=== PATIENT | male | born 1955 | race Caucasian/White ===

== ENCOUNTER 2018-01-08 18:12 | Emergency (ER) | payer OTHER ==
[2018-01-08] MEDS ORDERED: NORMAL SALINE 1000 ML 1,000 ML IV ONE (19:06)
[2018-01-08] MEDS ORDERED: PANTOPRAZOLE SODIUM 40 MG VIAL IV ONE (19:07)
--- NOTE | 2018-01-08 19:13 | ER Document Report ---
ED General - General Chief Complaint: Abdominal Pain Stated Complaint: ABDOMINAL PAIN Time Seen by Provider: 01/08/18 18:43 Notes: Patient is a 62-year-old male that presents to the emergency department for chief complaint of stomach cramping and gas. Patient reports has been having these symptoms over the last 3 weeks, describes it as an aching and having lots of gas, and changes in his bowel movements. He has had some loose stools, and changes in the colors, stating that it has been brown, green, and occasionally darker as well. He has an appoint with the [facility] next week, he states he had x- rays performed several days ago, he does not know the results of these. He states he does have a history of H. pylori, which was treated last year, at that time he was having more belching as opposed to flatulence. Denies any recent travel, or consumption of undercooked foods. No sick contacts that he is aware of. Past Medical History: GERD, H pylori Past Surgical History: Denies abdominal surgeries in the past, reports orthopedic surgeries Social History: Denies current tobacco, alcohol or drug use Family History: Reviewed and noncontributory for presenting illness Allergies: Reviewed, see documented allergy list. REVIEW OF SYSTEMS: Other than noted above, the 12 point review of systems was reviewed with the patient and were negative, all pertinent findings are included in the HPI. PHYSICAL EXAMINATION: Vital signs reviewed, nursing noted reviewed. GENERAL: Well-appearing, well-nourished and in no acute distress. HEAD: Atraumatic, normocephalic. EYES: Eyes appear normal, extraocular movements intact, sclera anicteric, conjunctiva are normal. ENT: nares patent, oropharynx clear without exudates. Moist mucous membranes. NECK: Normal range of motion, supple without lymphadenopathy LUNGS: Breath sounds clear to auscultation bilaterally and equal. No wheezes rales or rhonchi. HEART: Regular rate and rhythm without murmurs ABDOMEN: Soft, nontender, normoactive bowel sounds. No rebound, guarding, or rigidity. No masses appreciated. EXTREMITIES: Nontender, good range of motion, no pitting or edema. NEUROLOGICAL: No focal neurological deficits. Moves all extremities spontaneously Motor and sensory grossly intact on exam. PSYCH: Normal mood, normal affect. SKIN: Warm, Dry, normal turgor, no rashes or lesions noted on exposed skin TRAVEL OUTSIDE OF THE [place] IN LAST 30 DAYS: No - Related Data Allergies/Adverse Reactions: erythromycin base Allergy (Verified 01/08/18 18:21) Penicillins Allergy (Verified 01/08/18 18:21) Past Medical History - Social History Smoking Status: Never Smoker Chew tobacco use (# tins/day): No Frequency of alcohol use: None Drug Abuse: None Family History: Reviewed & Not Pertinent Patient has suicidal ideation: No Patient has homicidal ideation: No Renal/ Medical History: Denies: Hx Peritoneal Dialysis Physical Exam - Vital signs Vitals: Temp Pulse Resp BP Pulse Ox 98.2 F 85 18 139/106 H 100 01/08/18 18:24 01/08/18 18:24 01/08/18 18:24 01/08/18 18:24 01/08/18 18:24 Course - Re-evaluation Re-evalutation: Patient seen and examined vital signs reviewed. Laboratory data and imaging were ordered as appropriate for the patient's presenting symptoms and complaint, with consideration of any critical or life threatening conditions that may be associated with their obtained history and exam as noted above. Patient was treated with IV fluid, and Protonix Results were reviewed when available and demonstrated unremarkable blood work, negative lipase, and negative troponin, stool studies were ordered however patient did not provide sample The patient was re-evaluated and was stable Evaluation was most consistent with abdominal cramping, intermittent diarrhea, [facility] he has an appointment this upcoming Saturday, he is advised if his symptoms worsen to return to the emergency department sooner, will prescribe a prescription for Bentyl and simethicone. Results were discussed with the patient at this point, after careful consideration I feel that that patient can be discharged from the emergency department, the patient was educated treatments and reasons to return to the emergency department based on their presumed diagnosis as noted above, they were advised to followup with a primary care physician in 2-3 days. Patient was agreeable to plan of care. *Note is created using voice recognition software and may contain spelling, syntax or grammatical errors. Laboratory 01/08/18 01/08/18 01/08/18 19:40 19:40 19:40 WBC 6.2 RBC 4.88 Hgb 14.9 Hct 43.8 MCV 90 MCH 30.5 MCHC 34.0 RDW 12.9 Plt Count 241 Seg Neutrophils % 77.9 Lymphocytes % 12.7 L Monocytes % 7.5 Eosinophils % 1.5 Basophils % 0.4 Absolute Neutrophils 4.8 Absolute Lymphocytes 0.8 Absolute Monocytes 0.5 Absolute Eosinophils 0.1 Absolute Basophils 0.0 Sodium 142.3 Potassium 4.2 Chloride 101 Carbon Dioxide 29 Anion Gap 12 BUN 14 Creatinine 0.84 Est GFR ( Amer) > 60 Est GFR (Non-Af Amer) > 60 Glucose 93 Calcium 9.2 Total Bilirubin 0.6 Direct Bilirubin 0.1 Neonat Total Bilirubin Not Reportable Neonat Direct Bilirubin Not Reportable Neonat Indirect Bili Not Reportable AST 24 ALT 23 Alkaline Phosphatase 71 Troponin I < 0.012 Total Protein 7.0 Albumin 4.0 Lipase 41.7 - Vital Signs Vital signs: Temp Pulse Resp BP Pulse Ox 98.2 F 85 17 155/93 H 99 01/08/18 21:43 01/08/18 21:43 01/08/18 21:43 01/08/18 21:43 01/08/18 21:43 - Laboratory Result Diagrams: 01/08/18 19:40 01/08/18 19:40 Laboratory results interpreted by me: 01/08/18 01/08/18 19:40 21:00 Lymphocytes % 12.7 L Urine Protein 30 H Discharge - Discharge Clinical Impression: Abdominal cramping Condition: Stable Disposition: HOME, SELF-CARE Instructions: Abdominal Pain ([facility]), Antispasmodics ([facility]) Additional Instructions: Please return to the emergency department if you have any worsening, or concern of your symptoms. Please return to the emergency department if you develop chest pain, difficulty breathing, severe abdominal pain, or ongoing vomiting. Please follow-up with your primary care physician in 2-3 days and any other recommended physicians. If prescribed, take all medications as directed. If you have any questions or concerns do not hesitate to return the emergency department for evaluation. Prescriptions: Dicyclomine HCl [Bentyl 10 mg Capsule] 1 cap PO TID PRN #30 cap PRN Reason: Abdominal Cramping Simethicone [Mylicon 80 mg Chewable Tablet] 80 mg PO QIDP PRN #30 tab.chew PRN Reason: abdominal gas Referrals: NICOLE VORA MD [[facility]ONORARY] - Follow up as needed
[2018-01-08 19:51] LABS: ABSOLUTE EOSINOPHILS # (AUTO) 0.1 10^3/uL (0.0-0.6); ABSOLUTE LYMPHOCYTES (AUTO) 0.8 10^3/uL (0.5-4.7); ABSOLUTE MONOCYTES (AUTO) 0.5 10^3/uL (0.1-1.4); ABSOLUTE NEUT (AUTO) 4.8 10^3/uL (1.7-8.2); BASOPHILS % (AUTO) 0.4 % (0-2); EOSINOPHILS % (AUTO) 1.5 % (0-6); HEMATOCRIT 43.8 % (37.9-51.0); HEMOGLOBIN 14.9 g/dL (13.5-17.0); LYMPHOCYTES % (AUTO) 12.7 % (13-45); MEAN CORPUSCULAR HEMOGLOBIN 30.5 pg (27.0-33.4); MEAN CORPUSCULAR VOLUME 90 fl (80-97); MONOCYTES % (AUTO) 7.5 % (3-13); PLATELET COUNT 241 10^3/uL (150-450); RED BLOOD COUNT 4.88 10^6/uL (4.35-5.55); RED CELL DISTRIBUTION WIDTH 12.9 % (11.5-14.0); SEGMENTED NEUTROPHILS % (AUTO) 77.9 % (42-78); TOTAL CELLS COUNTED % (AUTO) 100 %; WHITE BLOOD COUNT 6.2 10^3/uL (4.0-10.5)
[2018-01-08 20:16] LABS: ALANINE AMINOTRANSFERASE 23 U/L (21-72); ALKALINE PHOSPHATASE 71 U/L (38-126); ANION GAP 12 (5-19); ASPARTATE AMINO TRANSFERASE 24 U/L (17-59); BILIRUBIN,DIRECT 0.1 mg/dL (0.0-0.4); BILIRUBIN,TOTAL 0.6 mg/dL (0.2-1.3); BLOOD UREA NITROGEN 14 mg/dL (7-20); CALCIUM 9.2 mg/dL (8.4-10.2); CARBON DIOXIDE 29 mmol/L (22-30); CHLORIDE 101 mmol/L (98-107); GLUCOSE 93 mg/dL (75-110); LIPASE 41.7 U/L (23-300); POTASSIUM 4.2 mmol/L (3.6-5.0); SODIUM 142.3 mmol/L (137-145)
[2018-01-08 21:49] VITALS: BP 155/93
[2018-01-08 21:50] LABS: APPEARANCE,URINE CLEAR; BILIRUBIN,URINE NEGATIVE (NEGATIVE); COLOR,URINE YELLOW; GLUCOSE, URINE NEGATIVE (NEGATIVE); KETONES,URINE NEGATIVE (NEGATIVE); LEUKOCYTE ESTERASE,URINE NEGATIVE (NEGATIVE); NITRITE,URINE NEGATIVE (NEGATIVE); PROTEIN,URINE 30 mg/dL (NEGATIVE); URINE SPECIFIC GRAVITY 1.015; UROBILINOGEN,URINE NEGATIVE mg/dL (<2.0)
== END 2018-01-08 21:49 | disposition home or self-care (01) ==
LOC: ER 18:12
DX: R10.9 Unspecified abdominal pain (principal); R19.4 Change in bowel habit; R19.5 Other fecal abnormalities; R14.3 Flatulence; Z87.19 Personal history of other diseases of the digestive system; Z88.1 Allergy status to other antibiotic agents; Z88.0 Allergy status to penicillin
CPT/HCPCS: 99284; 96361; 96374; 36415; 83690; 85025; 80053; 81001; 84484; S0164; J7030

== ENCOUNTER 2019-01-17 11:21 | Emergency (ER) | payer OTHER ==
--- NOTE | 2019-01-17 11:48 | EKG REPORT ---
SEVERITY:- ABNORMAL ECG - SINUS RHYTHM ATRIAL PREMATURE COMPLEX PROBABLE LEFT ATRIAL ABNORMALITY LEFT ANTERIOR FASCICULAR BLOCK : Confirmed by: Morelia Wright MD 17-Jan-2019 11:47:30
--- NOTE | 2019-01-17 11:56 | ER Document Report ---
ED Medical Screen (RME) - General Chief Complaint: Chest Pain Stated Complaint: CHEST PAIN Time Seen by Provider: 01/17/19 11:49 Mode of Arrival: Wheelchair Information source: Patient Notes: 63-year-old male presents emergency department with midsternal chest pain since last night. Reports he has taken at least 10 sublingual nitros without relief of chest pain. Patient reports he had 2 stents placed in July at [facility]. Patient reports he was on the ground exercising when he started having chest pain. Denies nausea vomiting denies diaphoresis reports it hurts more when he takes a deep breath. Reports he will not take a deep breath again because it hurts so bad. I have greeted and performed a rapid initial assessment of this patient. A comprehensive ED assessment and evaluation of the patient, analysis of test results and completion of the medical decision making process will be conducted by additional ED providers. Dictation of this chart was performed using voice recognition software; therefore, there may be some unintended grammatical errors. TRAVEL OUTSIDE OF THE [place].S. IN LAST 30 DAYS: No - Related Data Allergies/Adverse Reactions: erythromycin base Allergy (Verified 01/17/19 11:47) Penicillins Allergy (Verified 01/17/19 11:47) Past Medical History - Social History Chew tobacco use (# tins/day): No Frequency of alcohol use: Occasional Drug Abuse: None Renal/ Medical History: Denies: Hx Peritoneal Dialysis Physical Exam - Vital signs Vitals: Temp Pulse Resp BP Pulse Ox 98 F 82 16 128/77 H 95 01/17/19 11:48 01/17/19 11:48 01/17/19 11:48 01/17/19 11:48 01/17/19 11:48 Course - Vital Signs Vital signs: Temp Pulse Resp BP Pulse Ox 98 F 82 16 128/77 H 95 01/17/19 11:48 01/17/19 11:48 01/17/19 11:48 01/17/19 11:48 01/17/19 11:48
[2019-01-17] MEDS ORDERED: NITROGLYCERIN/D5W 50 MG/250 ML RTUINJ IV ONE (12:16)
[2019-01-17] MEDS ORDERED: NITROGLYCERIN/D5W 50 MG/250 ML RTUINJ IV PRN (12:17)
[2019-01-17 12:25] LABS: ABSOLUTE BASOPHILS # (AUTO) 0.1 10^3/uL (0.0-0.2); ABSOLUTE LYMPHOCYTES (AUTO) 1.4 10^3/uL (0.5-4.7); ABSOLUTE MONOCYTES (AUTO) 0.8 10^3/uL (0.1-1.4); ABSOLUTE NEUT (AUTO) 10.7 10^3/uL (1.7-8.2); BASOPHILS % (AUTO) 0.4 % (0-2); EOSINOPHILS % (AUTO) 0.1 % (0-6); HEMATOCRIT 43.7 % (37.9-51.0); HEMOGLOBIN 14.5 g/dL (13.5-17.0); LYMPHOCYTES % (AUTO) 10.5 % (13-45); MEAN CORPUSCULAR HEMOGLOBIN 30.6 pg (27.0-33.4); MEAN CORPUSCULAR HGB CONC 33.2 g/dL (32.0-36.0); MEAN CORPUSCULAR VOLUME 92 fl (80-97); MONOCYTES % (AUTO) 6.4 % (3-13); PLATELET COUNT 268 10^3/uL (150-450); RED BLOOD COUNT 4.75 10^6/uL (4.35-5.55); RED CELL DISTRIBUTION WIDTH 14.4 % (11.5-14.0); SEGMENTED NEUTROPHILS % (AUTO) 82.6 % (42-78); TOTAL CELLS COUNTED % (AUTO) 100 %
[2019-01-17 12:36] LABS: ALKALINE PHOSPHATASE 53 U/L (38-126); ANION GAP 7 (5-19); ASPARTATE AMINO TRANSFERASE 19 U/L (17-59); BILIRUBIN,TOTAL 0.5 mg/dL (0.2-1.3); BLOOD UREA NITROGEN 21 mg/dL (7-20); CALCIUM 9.4 mg/dL (8.4-10.2); CARBON DIOXIDE 28 mmol/L (22-30); CHLORIDE 102 mmol/L (98-107); CREATINE KINASE 61 U/L (55-170); GLUCOSE 82 mg/dL (75-110); TOTAL PROTEIN 6.8 g/dL (6.3-8.2)
--- NOTE | 2019-01-17 13:01 | RADIOLOGY REPORT (SQ) ---
EXAM DESCRIPTION: CHEST SINGLE VIEW COMPLETED DATE/TIME: 01/17/2019 12:52 pm REASON FOR STUDY: cp COMPARISON: None. EXAM PARAMETERS: NUMBER OF VIEWS: One view. TECHNIQUE: Single frontal radiographic view of the chest acquired. RADIATION DOSE: NA LIMITATIONS: None. FINDINGS: LUNGS AND PLEURA: No opacities, masses or pneumothorax. No pleural effusion. MEDIASTINUM AND HILAR STRUCTURES: No masses. Contour normal. HEART AND VASCULAR STRUCTURES: Heart normal in size. Normal vasculature. BONES: No acute findings. HARDWARE: None in the chest. OTHER: No other significant finding. IMPRESSION: NO ACUTE RADIOGRAPHIC FINDING IN THE CHEST. TECHNICAL DOCUMENTATION: JOB ID: [id number] [employer]- All Rights Reserved Reading location - IP/workstation name: [email or web address]
[2019-01-17] MEDS ORDERED: HEPARIN SODIUM,PORCINE/D5W 25,000 UNIT/250 ML RTUINJ IV PRN (15:12)
[2019-01-17] MEDS ORDERED: HEPARIN SOD (PORCINE) 1,000 UNIT/ML 10 ML VIAL IV ONE (15:12)
[2019-01-17 15:52] LABS: INTERNATIONAL RATION (INR) 0.96; PROTHROMBIN TIME 12.8 SEC (11.4-15.4)
[2019-01-17 15:53] LABS: PARTIAL THROMBOPLASTIN TIME 25.1 SEC (23.5-35.8)
[2019-01-17] MEDS ORDERED: MORPHINE SULFATE IR 15 MG TABLET PO ONE (15:59)
[2019-01-17] MEDS ORDERED: GABAPENTIN 300 MG CAPSULE PO ONE (15:59)
[2019-01-17] MEDS ORDERED: OXYCODONE-ACETAMINOPHEN 5-325 MG TABLET PO ONE (16:00)
--- NOTE | 2019-01-17 16:06 | ER Document Report ---
Entered by FARSHAD FORD SCRIBE 01/17/19 1217 Acting as scribe for:FATEMEH BINGHAM IV, MD ED Cardiac - General Chief Complaint: Chest Pain Stated Complaint: CHEST PAIN Time Seen by Provider: 01/17/19 11:49 Primary Care Provider: RICHIE,RAH [Primary Care Provider] - Follow up as needed Mode of Arrival: Wheelchair Notes: Patient is a 63-year-old male that presents to the emergency department today with complaints of chest pain which began yesterday at 6 PM when he was exercising. Patient states when the chest pain began he sat down to rest but the chest pain continued into today. Patient has taken 10 sublingual nitroglycerin since midnight last night. Pertinent PMHx/PSHx: Currently in pain management, taking 15 mg morphine tabs BID. Previous [place] 6 months ago. Coronary artery disease. Hyperlipidemia. Type II diabetic.. PCP: [facility] TRAVEL OUTSIDE OF THE [place] IN LAST 30 DAYS: No - Related Data Allergies/Adverse Reactions: erythromycin base Allergy (Verified 01/17/19 11:47) Penicillins Allergy (Verified 01/17/19 11:47) Past Medical History - General Information source: Patient - Social History Smoking Status: Current Every Day Smoker Cigarette use (# per day): Yes Chew tobacco use (# tins/day): No Frequency of alcohol use: Occasional Drug Abuse: None Lives with: Family Family History: Reviewed & Not Pertinent Patient has suicidal ideation: No Patient has homicidal ideation: No - Past Medical History Cardiac Medical History: Reports: Hx Coronary Artery Disease, Hx Heart Attack Past Surgical History: Reports: Hx Cardiac Catheterization, Hx Coronary Stent Review of Systems - Review of Systems Constitutional: No symptoms reported EENT: No symptoms reported Cardiovascular: See HPI, Chest pain Respiratory: No symptoms reported Gastrointestinal: No symptoms reported Genitourinary: No symptoms reported Male Genitourinary: No symptoms reported Musculoskeletal: No symptoms reported Skin: No symptoms reported Hematologic/Lymphatic: No symptoms reported Neurological/Psychological: No symptoms reported -: Yes All other systems reviewed and negative Physical Exam - Vital signs Vitals: Temp Pulse Resp BP Pulse Ox 98 F 82 16 128/77 H 95 01/17/19 11:48 01/17/19 11:48 01/17/19 11:48 01/17/19 11:48 01/17/19 11:48 - Notes Notes: Physical Exam: General: Alert, appears well. HEENT: Normocephalic. Atraumatic. PERRL. Extraocular movements intact. Oropharynx clear. Neck: Supple. Non-tender. Respiratory: No respiratory distress. Clear and equal breath sounds bilaterally. Cardiovascular: Regular rate and rhythm. Abdominal: Normal Inspection. Non-tender. No distension. Normal Bowel Sounds. Back: No gross abnormalities. Extremities: Moves all four extremities. Upper extremities: Normal inspection. Normal ROM. Lower extremities: Normal inspection. No edema. Normal ROM. Neurological: Normal cognition. AAOx4. Normal speech. Psychological: Normal affect. Normal Mood. Skin: Warm. Dry. Normal color. Course - Vital Signs Vital signs: Temp Pulse Resp BP Pulse Ox 98 F 82 20 109/71 98 01/17/19 11:48 01/17/19 11:48 01/17/19 12:01 01/17/19 12:00 01/17/19 12:08 - Laboratory Result Diagrams: 01/17/19 12:03 01/17/19 12:03 Laboratory results interpreted by me: 01/17/19 01/17/19 12:03 12:03 WBC 13.0 H RDW 14.4 H Lymph % (Auto) 10.5 L Absolute Neuts (auto) 10.7 H Seg Neutrophils % 82.6 H BUN 21 H - Diagnostic Test Radiology reviewed: Reports reviewed - EKG Interpretation by Me Additional EKG results interpreted by me: 01/17/19 15:35 EKG performed on 01/17/2019 at 1133 hrs. was interpreted by this MD. Findings normal sinus rhythm, rate 70, normal axis, pes preceding QRS complexes, QRS complex narrow, no acute ST segment elevation or depression to suggest myocardial ischemia or infarction. Impression normal sinus rhythm with nonspecific ST segments. - Consults DR. JESS JASON Time consulted: 15:02 - Case discussed with Dr. Jason, [place] wallpaper cleaner. He agreed to accept patient for transfer to this facility. He requested that the patient be given a 3000 units heparin bolus IV followed by a heparin drip at 12 units/kg/h. Reason for consultation: 01/17/19 15:40 CHEST PAIN CONTROLLED WITH IV NITROGLYCERIN. PT STATES HE HAD 3 STENTS PLACED AT [facility]. - Transfer of Care Care transferred to following provider: DR. VIDAL AT 1600 HOURS Discharge - Discharge Clinical Impression: Acute chest pain Condition: Good Disposition: [facility] - Follow up as needed I personally performed the services described in the documentation, reviewed and edited the documentation which was dictated to the scribe in my presence, and it accurately records my words and actions.
[2019-01-17 20:04] VITALS: BP 104/62
--- NOTE | 2019-01-17 20:11 | ER Document Report ---
Doctor's Note Notes: 01/17/19 20:10 Care of this patient was turned over to me at the beginning of my shift. In short this is a 63-year-old male with unstable angina, prior medical care and coronary stenting done at [facility], who was awaiting transfer and bed assignment. The patient remained chest pain-free throughout the course of his stay on a nitroglycerin drip here. He has been stable. He is stable and medically cleared for transport.
== END 2019-01-17 20:22 | disposition short-term general hospital (02) ==
LOC: ER 11:21
DX: R07.9 Chest pain, unspecified (principal); Z79.899 Other long term (current) drug therapy; I25.2 Old myocardial infarction; I25.10 Atherosclerotic heart disease of native coronary artery without angina pectoris; E11.9 Type 2 diabetes mellitus without complications; F17.210 Nicotine dependence, cigarettes, uncomplicated
CPT/HCPCS: 93005; 99285; 96365; 96366; 96368; 36415; 82550; 85025; 85610; 85730; 80053; 84484; 71045; 93010; J1644 ×2; J3490

== ENCOUNTER 2019-12-31 04:42 | Emergency (ER) | payer OTHER ==
[2019-12-31] MEDS ORDERED: DEXAMETHASONE SOD PHOS INJ 10 MG/1 ML VIAL IM ONE (05:56)
[2019-12-31] MEDS ORDERED: DIPHENHYDRAMINE HCL 50 MG/ML VIAL IM ONE (05:57)
--- NOTE | 2019-12-31 07:33 | ER Document Report ---
ED General - General Chief Complaint: Rash Stated Complaint: ALLERGIC REACTION DUE TO MEDICATION [facility] Provider: [facility] [[facility]] - Follow up as needed Notes: 64-year-old male history of chronic neck pain hypertension started on meloxicam and other NSAID last week for back pain presents with rash spreading over anterior neck upper chest and on bilateral cheeks. Rash is extremely purulent. Patient has tried Benadryl without effect. Patient denies any rashes mouth, eye redness, fever, rash elsewhere, shortness of breath, dizziness, fatigue, GI symptoms, throat swelling TRAVEL OUTSIDE OF THE [place] IN LAST 30 DAYS: No - Related Data Allergies/Adverse Reactions: erythromycin base Allergy (Verified 12/31/19 05:01) meloxicam Allergy (Verified 12/31/19 05:01) naproxen [From Naprosyn] Allergy (Verified 12/31/19 05:01) Penicillins Allergy (Verified 12/31/19 05:01) Past Medical History - General Information source: Patient - Social History Smoking Status: Never Smoker Frequency of alcohol use: None Drug Abuse: None Family History: Reviewed & Not Pertinent - Past Medical History Cardiac Medical History: Reports: Hx Coronary Artery Disease, Hx Heart Attack Renal/ Medical History: Denies: Hx Peritoneal Dialysis Past Surgical History: Reports: Hx Cardiac Catheterization, Hx Coronary Stent Review of Systems - Review of Systems Notes: REVIEW OF SYSTEMS: CONSTITUTIONAL : Denies fever, chills, or sweats. EENT: Denies recent cold/sinus symptoms, denies throat pain CARDIOVASCULAR: Denies chest pain, KORI RESPIRATORY: Denies cough, denies shortness of breath. GASTROINTESTINAL: Denies abdominal pain, nausea/vomiting. GENITOURINARY: Denies difficulty urinating, painful urination. MUSCULOSKELETAL: Denies injury, back pain. SKIN: + rash or skin lesions. HEMATOLOGIC : Denies easy bruising or bleeding. LYMPHATIC: Denies swollen, enlarged glands. NEUROLOGICAL: Denies headache, denies change in gait. PSYCHIATRIC: Denies anxiety or stress or depression. Physical Exam - Vital signs Vitals: Temp Pulse Resp BP Pulse Ox 97.5 F 91 17 198/106 H 98 12/31/19 04:50 12/31/19 04:50 12/31/19 04:50 12/31/19 04:50 12/31/19 04:50 - Notes Notes: PHYSICAL EXAMINATION: GENERAL: Well-appearing, well-nourished and in no acute distress. HEAD: Atraumatic, normocephalic. EYES: Pupils equal round and appropriate constriction, sclera anicteric, conjunctiva are normal. ENT: nares patent, moist mucous membranes. NECK: Normal range of motion, supple without lymphadenopathy LUNGS: Breath sounds clear to auscultation bilaterally and equal. No wheezes rales or rhonchi. HEART: Regular rate and rhythm without murmurs ABDOMEN: Soft, nontender, no guarding, no masses, no CVAT EXTREMITIES: Normal range of motion, no pitting or edema. No cyanosis. NEUROLOGICAL: Awake, alert, conversing appropriately, moves all extremities spontaneously. PSYCH: Normal mood, normal affect. SKIN: Warm, Dry, normal turgor, blanching erythematous rash confluent over upper chest and anterior back with patches on bilateral cheeks. Segments on chest and back spares intertriginous neck folds, skin looks mildly friable, has scant bleeding from excoriations. Normal lips, normal oropharynx, no rash on hands Course - Re-evaluation Re-evalutation: 12/31/19 07:34 Patient with worsening rash after likely drug reaction. Patient DC'd NSAIDs ready. No symptoms of anaphylaxis. Patient has been scratching rash that appears to have a superimposed fungal infection, will treat with steroid antihistamines and topical azole. Will give patient during follow-up and instructed to follow-up with primary doctor. Gave follow-up instructions. Patient ready for discharge. - Vital Signs Vital signs: Temp Pulse Resp BP Pulse Ox 97.5 F 91 17 198/106 H 98 12/31/19 04:50 12/31/19 04:50 12/31/19 04:50 12/31/19 04:50 12/31/19 04:50 Discharge - Discharge Clinical Impression: Allergic drug rash, Tinea corporis Disposition: HOME, SELF-CARE Additional Instructions: Your rash appears to be due to an allergy to NSAID medications which include both medications you are taking as well as ibuprofen, Aleve, Motrin, Toradol. You can take acetaminophen (brand-name Tylenol). You also have a fungal infection brought on by this rash. Ringworm (Tinea Corporis) You have a fungal infection of the skin, called tinea corporis. This is sometimes called "ringworm." because it tends forms an enlarging ring on the skin. The infection results from exposure to another person or an animal carrying the fungus, but it is only mildly contagious. There can be mild itching, or sometimes no symptoms at all. The infection is usually treated with antifungal cream. This is applied two or three times daily. Healing may take two or three weeks. Occasionally, oral medication is necessary, for example, when the infection if very large, or if fungus involves the scalp or nails. Fingernail or toenail infections are very difficult to eradicate, often requiring many weeks of treatment. Return for re-examination if your symptoms change significantly -- for example, if you develop fever or chills, red streaks, increasing tenderness, swelling, or blisters at the infection site. Take cream as prescribed. Follow-up with distance education faculty liaison and primary doctor within 1 week. If you have trouble breathing, dizziness, fainting, rash of eyes or mouth, swelling in the mouth or throat, worsening rash, or any other worseni ng or alarming symptoms return to the emergency department immediately. Talk to your primary doctor about your blood pressure control. Uncontrolled blood high blood pressure is a risk factor for heart attack, stroke, and . You have any change in your vision, chest pain, shortness of breath, dizziness, fainting return to the emergency department immediately. Prescriptions: Ketoconazole 60 gm TP BID 28 Days #1 cream..g. Forms: Elevated Blood Pressure Referrals: PACO BONILLA DO [ACTIVE STAFF] - Follow up in 1 week ROB SANCHEZ MD [ACTIVE STAFF] - Follow up in 1 week
[2019-12-31 08:10] VITALS: BP 172/99
== END 2019-12-31 08:10 | disposition home or self-care (01) ==
LOC: ER 04:42
DX: R21 Rash and other nonspecific skin eruption (principal); T50.905A Adverse effect of unspecified drugs, medicaments and biological substances, initial encounter; B35.4 Tinea corporis; M54.9 Dorsalgia, unspecified; I25.10 Atherosclerotic heart disease of native coronary artery without angina pectoris; I25.2 Old myocardial infarction; I10 Essential (primary) hypertension; Z88.1 Allergy status to other antibiotic agents; Z88.8 Allergy status to other drugs, medicaments and biological substances; Z88.0 Allergy status to penicillin
CPT/HCPCS: 99284; 96372; J1200; J1100

== ENCOUNTER 2020-01-02 08:53 | Emergency (ER) | payer OTHER ==
--- NOTE | 2020-01-02 09:52 | ER Document Report ---
ED General - General Chief Complaint: Skin Problem Stated Complaint: RINGWORM FOLLOWUP Time Seen by Provider: 01/02/20 09:51 Primary Care Provider: RA[facility] QUIROZ [Primary Care Provider] - Follow up as needed TRAVEL OUTSIDE OF THE [place] IN LAST 30 DAYS: No - Related Data Allergies/Adverse Reactions: erythromycin base Allergy (Verified 12/31/19 05:01) meloxicam Allergy (Verified 12/31/19 05:01) naproxen [From Naprosyn] Allergy (Verified 12/31/19 05:01) Penicillins Allergy (Verified 12/31/19 05:01) Past Medical History - Social History Family History: Reviewed & Not Pertinent - Past Medical History Cardiac Medical History: Reports: Hx Coronary Artery Disease, Hx Heart Attack Renal/ Medical History: Denies: Hx Peritoneal Dialysis Past Surgical History: Reports: Hx Cardiac Catheterization, Hx Coronary Stent Physical Exam - Vital signs Vitals: Temp Pulse Resp BP Pulse Ox 97.7 F 79 18 183/110 H 98 01/02/20 09:00 01/02/20 09:00 01/02/20 09:00 01/02/20 09:00 01/02/20 09:00 Course - Vital Signs Vital signs: Temp Pulse Resp BP Pulse Ox 97.7 F 79 18 183/110 H 98 01/02/20 09:00 01/02/20 09:00 01/02/20 09:00 01/02/20 09:00 01/02/20 09:00 Discharge - Discharge Referrals: RICHIE,[facility] [Primary Care Provider] - Follow up as needed
[2020-01-02] MEDS ORDERED: DIPHENHYDRAMINE HCL 50 MG/ML VIAL IV ONE (10:30)
[2020-01-02] MEDS ORDERED: NORMAL SALINE 1000 ML 1,000 ML IV ONE (10:30)
[2020-01-02] MEDS ORDERED: FAMOTIDINE INJ/PF 20 MG/2 ML SDV IV ONE (10:31)
[2020-01-02] MEDS ORDERED: CLINDAMYCIN 900 MG/D5W RTU 900 MG/50 ML RTUPB IV ONE (10:32)
[2020-01-02 11:32] LABS: ABSOLUTE EOSINOPHILS # (AUTO) 0.7 10^3/uL (0.0-0.6); ABSOLUTE LYMPHOCYTES (AUTO) 1.6 10^3/uL (0.5-4.7); ABSOLUTE MONOCYTES (AUTO) 0.7 10^3/uL (0.1-1.4); ABSOLUTE NEUT (AUTO) 3.2 10^3/uL (1.7-8.2); BASOPHILS % (AUTO) 0.6 % (0-2); EOSINOPHILS % (AUTO) 11.6 % (0-6); HEMATOCRIT 44.4 % (37.9-51.0); LYMPHOCYTES % (AUTO) 25.5 % (13-45); MEAN CORPUSCULAR HEMOGLOBIN 29.8 pg (27.0-33.4); MEAN CORPUSCULAR HGB CONC 33.8 g/dL (32.0-36.0); MEAN CORPUSCULAR VOLUME 88 fl (80-97); MONOCYTES % (AUTO) 11.4 % (3-13); PLATELET COUNT 243 10^3/uL (150-450); RED BLOOD COUNT 5.04 10^6/uL (4.35-5.55); RED CELL DISTRIBUTION WIDTH 13.4 % (11.5-14.0); SEGMENTED NEUTROPHILS % (AUTO) 50.9 % (42-78); TOTAL CELLS COUNTED % (AUTO) 100 %; WHITE BLOOD COUNT 6.2 10^3/uL (4.0-10.5)
[2020-01-02 11:54] LABS: ALBUMIN 4.5 g/dL (3.5-5.0); ALKALINE PHOSPHATASE 74 U/L (38-126); ANION GAP 11 (5-19); ASPARTATE AMINO TRANSFERASE 34 U/L (17-59); BILIRUBIN,TOTAL 0.3 mg/dL (0.2-1.3); BLOOD UREA NITROGEN 21 mg/dL (7-20); CALCIUM 9.4 mg/dL (8.4-10.2); CARBON DIOXIDE 26 mmol/L (22-30); CHLORIDE 103 mmol/L (98-107); GLUCOSE 97 mg/dL (75-110); POTASSIUM 4.1 mmol/L (3.6-5.0); TOTAL PROTEIN 7.3 g/dL (6.3-8.2)
--- NOTE | 2020-01-02 13:19 | ER Document Report ---
Entered by JAYLON ANTON SCRIBE 01/02/20 1025 Acting as scribe for:YURI GAR MD ED General - General Chief Complaint: Skin Problem Stated Complaint: RINGWORM FOLLOWUP Time Seen by Provider: 01/02/20 09:51 Primary Care Provider: RICHIE,RAH [Primary Care Provider] - Follow up as needed Information source: Patient Notes: This 64 year old male patient presents to the emergency department today with complaints of a rash for the past x5 days. Patient states he thought it was a allergic reaction to him now taking naproxin and meloxicam, so he stopped taking both. Patient states he has visited urgent care and the ED x2 days ago. Patient states his last ED visit he got shots which helped with itching. Patient states the rash is on his upper chest and neck, but has spread to parts of his face since his last visit. TRAVEL OUTSIDE OF THE [place] IN LAST 30 DAYS: No - Related Data Allergies/Adverse Reactions: erythromycin base Allergy (Verified 12/31/19 05:01) meloxicam Allergy (Verified 12/31/19 05:01) naproxen [From Naprosyn] Allergy (Verified 12/31/19 05:01) Penicillins Allergy (Verified 12/31/19 05:01) Past Medical History - General Information source: Patient - Social History Smoking Status: Unknown if Ever Smoked Family History: Reviewed & Not Pertinent - Past Medical History Cardiac Medical History: Reports: Hx Coronary Artery Disease, Hx Heart Attack Renal/ Medical History: Denies: Hx Peritoneal Dialysis Past Surgical History: Reports: Hx Cardiac Catheterization, Hx Coronary Stent Review of Systems - Review of Systems Constitutional: No symptoms reported EENT: No symptoms reported Cardiovascular: No symptoms reported Respiratory: No symptoms reported Gastrointestinal: No symptoms reported Genitourinary: No symptoms reported Male Genitourinary: No symptoms reported Musculoskeletal: No symptoms reported Skin: See HPI, Rash - neck, chest, face Hematologic/Lymphatic: No symptoms reported Neurological/Psychological: No symptoms reported -: Yes All other systems reviewed and negative Physical Exam - Vital signs Vitals: Temp Pulse Resp BP Pulse Ox 97.7 F 79 18 183/110 H 98 01/02/20 09:00 01/02/20 09:00 01/02/20 09:00 01/02/20 09:00 01/02/20 09:00 - General General appearance: Appears well, Alert - HEENT Head: Normocephalic, Atraumatic Eyes: Normal Pupils: PERRL - Respiratory Respiratory status: No respiratory distress Chest status: Nontender Breath sounds: Normal Chest palpation: Normal - Cardiovascular Rhythm: Regular Heart sounds: Normal auscultation Murmur: No - Abdominal Inspection: Normal Distension: No distension Bowel sounds: Normal Tenderness: Nontender - Extremities General upper extremity: Normal inspection, Normal ROM General lower extremity: Normal inspection, Normal ROM. No: Edema - Neurological Neuro grossly intact: Yes Cognition: Normal Orientation: AAOx4 [place] Coma Scale Eye Opening: Spontaneous [place] Coma Scale Verbal: Oriented [place] Coma Scale Motor: Obeys Commands [place] Coma Scale Total: 15 Speech: Normal Sensory: Normal - Psychological Associated symptoms: Normal affect, Normal mood - Skin Skin Temperature: Warm Skin Moisture: Dry Notes: Erythematous, dry, confluent rash to the anterior chest, neck, and face. Course - Re-evaluation Re-evalutation: 01/02/20 13:12 Patient reports that his itching is improved. - Vital Signs Vital signs: Temp Pulse Resp BP Pulse Ox 97.7 F 79 18 183/110 H 98 01/02/20 09:00 01/02/20 09:00 01/02/20 09:00 01/02/20 09:00 01/02/20 09:00 01/02/20 13:13 vital signs shows systolic diastolic hypertension 183/110 recomme nd repeating vital signs prior to discharge. - Laboratory Result Diagrams: 01/02/20 11:23 01/02/20 11:23 Laboratory results interpreted by me: 01/02/20 01/02/20 11:23 11:23 Eos % (Auto) 11.6 H Absolute Eos (auto) 0.7 H BUN 21 H Patient's labs are within normal range except for BUN of 21. Eosinophils 11.6 elevated. Discharge - Discharge Clinical Impression: Cellulitis and abscess of face Condition: Stable Disposition: HOME, SELF-CARE Additional Instructions: Itching, NonSpecific Itching can be a symptom of both skin problems or internal diseases. Most of the time, itching is simply a nuisance, and doesn't mean there's any serious underlying problem. If there are no symptoms of an ongoing medical condition, we simply prescribe anti-itch medicine to relieve symptoms. Itching can be due to skin allergic reactions such as poison oak, poison iv y, dermatitis, or jewelry allergy. It can be caused by dry skin, or skin that's been stretched by , weight gain, or water retention. It can be caused by skin parasites such as scabies, or by bug bites. Itching can be caused by internal allergy, such as food allergy, or medication allergy, or intestinal parasites. It can accompany liver disease. Apply a non-perfumed ointment like Vaseline, Eucerin lotion, Nutraderm, or Lubriderm if your skin is dry. Apply frequently, especially after bathing. Benadryl, Hydroxyzine, Doxepin and other anti-itch medicines can help control the urge to scratch. Hydrocortisone cream, or a prescription steroid cream or ointment can help reduce inflammation. Avoid hot baths or showers. Use as little soap as possible while bathing. Don't scrub your skin unless the doctor has specifically told you to do this. Call the doctor or return if there are signs of infection, fever, pain, or if symptoms become severe. Recommend take Benadryl 25 to 50 mg every 6 hours if needed for itch. Discontinue use of Meloxican, and Naproxen. May take tylenol if needed for pain. Prescriptions: Clindamycin HCl 300 mg PO TID #30 capsule Forms: Elevated Blood Pressure Referrals: [facility] [Primary Care Provider] - Follow up as needed I personally performed the services described in the documentation, reviewed and edited the documentation which was dictated to the scribe in my presence, and it accurately records my words and actions.
[2020-01-02 13:32] VITALS: BP 153/82
== END 2020-01-02 13:31 | disposition home or self-care (01) ==
LOC: ER 08:53
DX: L03.211 Cellulitis of face (principal); I25.10 Atherosclerotic heart disease of native coronary artery without angina pectoris; I25.2 Old myocardial infarction; Z88.3 Allergy status to other anti-infective agents; Z88.0 Allergy status to penicillin
CPT/HCPCS: 99284; 96375; 96365; 36415; 87040; 85025; 80053; J1200; J3490; J7030; S0028